=== PATIENT | male | born 1985 | race Caucasian/White ===

== ENCOUNTER 2018-03-09 14:30 | Emergency (ER) | payer BC ==
--- NOTE | 2018-03-09 15:29 | ER ---
Nurse's Notes [facility] Name: Jono Castle Age: 32 yrs Sex: Male : 1985 Arrival Date: 03/09/2018 Time: 14:33 Bed 30 Private MD: Diagnosis: Paresthesia of skin Presentation: 03/09 14:43 Presenting complaint: Patient states: Intermittent numbness to hands and feet for 6 aj months with decreasing vision an decreased hearing. Patient drove himself to ER. Ambulated with steady gait. In NAD. Transition of care: patient was not received from another setting of care. Onset of symptoms was August 2017. Risk Assessment: Do you want to hurt yourself or someone else? Patient reports no desire to harm self or others. Initial Sepsis Screen: Does the patient meet any 2 criteria? No. Patient's initial sepsis screen is negative. Does the patient have a suspected source of infection? No. Patient's initial sepsis screen is negative. Care prior to arrival: None. 14:43 Method Of Arrival: Ambulatory 14:43 Acuity: CHRISTIAN 3 aj Triage Assessment: 14:44 General: Appears in no apparent distress. comfortable, Behavior is cooperative, aj anxious. Pain: Denies pain. Neuro: Level of Consciousness is awake, alert, obeys commands, Oriented to person, place, time, situation, Appropriate for age Triage Licensed Practical Nurse are equal bilaterally Moves all extremities. Full function Gait is steady, Speech is normal, Facial symmetry appears normal, Pupils are PERRLA, Numbness in right hand and left hand. Respiratory: Airway is patent Respiratory effort is even, unlabored, Respiratory pattern is regular, symmetrical. Derm: Skin is intact, is healthy with good turgor, Skin is pink, warm \T\ dry. normal. Historical: - Allergies: 14:44 No Known Drug Allergies; aj - Home Meds: 14:44 None [Active]; aj - PMHx: 14:44 None; aj - PSHx: 14:44 None; aj - Immunization history:: Adult Immunizations up to date. - Social history:: Smoking status: Patient/guardian denies using tobacco. - Ebola Screening: : Patient negative for fever greater than or equal to 101.5 degrees Fahrenheit, and additional compatible Ebola Virus Disease symptoms Patient denies exposure to infectious person Patient denies travel to an Ebola-affected area in the days before illness onset No symptoms or risks identified at this time. Screenin:20 Abuse screen: Denies threats or abuse. Denies injuries from another. Nutritional mg2 screening: No deficits noted. Tuberculosis screening: No symptoms or risk factors identified. Fall Risk None identified. Assessment: 15:22 General: Appears in no apparent distress. comfortable, Behavior is calm, cooperative. mg2 Pain: Denies pain. Neuro: Level of Consciousness is awake, alert, obeys commands, Oriented to person, place, time, situation. Cardiovascular: No deficits noted. Respiratory: No deficits noted. GI: No deficits noted. : No deficits noted. EENT: No deficits noted. Derm: Skin is intact, Skin is pink, warm \T\ dry. normal. Musculoskeletal: Circulation, motion, and sensation intact. Reports tingling sensation in the left arm and hand. Vital Signs: 14:44 BP 158 / 82; Pulse 104; Resp 20; Temp 97.7; Pulse Ox 97% on R/A; Weight 81.65 kg; aj Height 6 ft. 0 in. (182.88 cm); 15:54 BP 128 / 84; Pulse 90; Resp 18; Pulse Ox 100% on R/A; Pain 0/10; mg2 14:44 Body Mass Index 24.41 (81.65 kg, 182.88 cm) ED Course: 14:33 Patient arrived in ED. rg4 14:44 Triage completed. aj 14:46 Patient placed in an exam room. aj 15:03 Dejuan Garcia MD is Attending Physician. gs 15:19 Feroz Lundy, RN is Primary Nurse. mg2 15:21 No provider procedures requiring assistance completed. Patient did not have IV access mg2 during this emergency room visit. 15:23 Patient has correct armband on for positive identification. Pulse ox on. NIBP on. Door mg2 closed. 15:29 Chandler Perez MD is Referral Physician. gs 15:29 Amos Ayoub MD is Referral Physician. gs Administered Medications: No medications were administered Outcome: 15:28 Discharge ordered by . gs 15:54 Discharged to home ambulatory. mg2 15:54 Condition: good 15:54 Discharge instructions given to patient, Instructed on discharge instructions, follow up and referral plans. Demonstrated understanding of instructions, follow-up care. 15:55 Patient left the ED. mg2 Signatures: Kaylie Zafar, RN RN Dee Dee Larson rg4 Dejuan Garcia MD MD Feroz Lundy RN RN mg2 Corrections: (The following items were deleted from the chart) 14:46 14:44 Arm band placed on right wrist. Patient placed in an exam room, tremayne casper
--- NOTE | 2018-03-09 15:29 | EDPHYS ---
Physician Documentation [facility] Name: Jono Castle Age: 32 yrs Sex: Male : 1985 Arrival Date: 03/09/2018 Time: 14:33 Bed 30 Private MD: ED Physician Dejuan Garcia HPI: 03/09 18:30 This 32 yrs old Male presents to ER via Ambulatory with complaints of Doesn't gs Feel Right. 18:30 The patient's problem is reported as paresthesias, intermittent varying extremity, gs visual difficulty, blurred vision. Onset: The symptoms/episode began/occurred 2 month(s) ago. Duration: The episodes are intermittent, lasting wax and wane no pattern. Associated signs and symptoms: Pertinent negatives: abdominal pain, agitation, ataxia, combativeness, confusion, diaphoresis, diarrhea, dizziness, headache, lightheadedness, nausea, palpitations, seizure, shortness of breath, tingling, vertigo, vomiting, weakness. Severity of symptoms: At their worst the symptoms were moderate in the emergency department the symptoms have resolved. The patient has experienced similar episodes in the past, multiple times. The patient has not recently seen a physician. Historical: - Allergies: 14:44 No Known Drug Allergies; aj - Home Meds: 14:44 None [Active]; aj - PMHx: 14:44 None; aj - PSHx: 14:44 None; aj - Immunization history:: Adult Immunizations up to date. - Social history:: Smoking status: Patient/guardian denies using tobacco. - Ebola Screening: : Patient negative for fever greater than or equal to 101.5 degrees Fahrenheit, and additional compatible Ebola Virus Disease symptoms Patient denies exposure to infectious person Patient denies travel to an Ebola-affected area in the 21 days before illness onset No symptoms or risks identified at this time. ROS: 18:30 All other systems are negative. gs Exam: 18:30 Head/Face: Normocephalic, atraumatic. Eyes: Pupils equal round and reactive to light, gs extra-ocular motions intact. Lids and lashes normal. Conjunctiva and sclera are non-icteric and not injected. Cornea within normal limits. Periorbital areas with no swelling, redness, or edema. ENT: Nares patent. No nasal discharge, no septal abnormalities noted. Tympanic membranes are normal and external auditory canals are clear. Oropharynx with no redness, swelling, or masses, exudates, or evidence of obstruction, uvula midline. Mucous membranes moist. Neck: Trachea midline, no thyromegaly or masses palpated, and no cervical lymphadenopathy. Supple, full range of motion without nuchal rigidity, or vertebral point tenderness. No Meningismus. Chest/axilla: Normal chest wall appearance and motion. Nontender with no deformity. No lesions are appreciated. Cardiovascular: Regular rate and rhythm with a normal S1 and S2. No gallops, murmurs, or rubs. Normal PMI, no JVD. No pulse deficits. Respiratory: Lungs have equal breath sounds bilaterally, clear to auscultation and percussion. No rales, rhonchi or wheezes noted. No increased work of breathing, no retractions or nasal flaring. Abdomen/GI: Soft, non-tender, with normal bowel sounds. No distension or tympany. No guarding or rebound. No evidence of tenderness throughout. Back: No spinal tenderness. No costovertebral tenderness. Full range of motion. Skin: Warm, dry with normal turgor. Normal color with no rashes, no lesions, and no evidence of cellulitis. MS/ Extremity: Pulses equal, no cyanosis. Neurovascular intact. Full, normal range of motion. Psych: Awake, alert, with orientation to person, place and time. Behavior, mood, and affect are within normal limits. 18:30 Constitutional: The patient appears in no acute distress, alert, awake. 18:30 Neuro: Orientation: to person, place, time \T\ situation. Mentation: is normal, Memory: is normal, Cranial nerves: CN II- XII are normal as tested, Cerebellar function: normal finger to nose testing, Motor: moves all fours, strength is 5/5 in all extremities, Sensation: no obvious gross deficits, pin prick testing is normal, Gait: is steady, appropriate for age, Deep tendon reflexes are 3+ (brisk) in the right bicep, right brachioradialis, right patellar, right Achilles, left bicep, left brachioradialis, left patellar and left Achilles. Vital Signs: 14:44 BP 158 / 82; Pulse 104; Resp 20; Temp 97.7; Pulse Ox 97% on R/A; Weight 81.65 kg; aj Height 6 ft. 0 in. (182.88 cm); 15:54 BP 128 / 84; Pulse 90; Resp 18; Pulse Ox 100% on R/A; Pain 0/10; mg2 14:44 Body Mass Index 24.41 (81.65 kg, 182.88 cm) aj MDM: 15:22 Patient medically screened. gs 18:30 Differential diagnosis: metabolic disorder, drug effects, multiple sclerosis, gs als,chorea. Data reviewed: vital signs, nurses notes. Counseling: I had a detailed discussion with the patient and/or guardian regarding: the historical points, exam findings, and any diagnostic results supporting the discharge/admit diagnosis, the need for outpatient follow up, a neurologist. ED course: offered to speak with patients mother, offered ct, agreed mri was best test and should see neurologist very soon for mri and specific blood work. wants to do as OP .. Administered Medications: No medications were administered Disposition: 03/09/18 15:28 Discharged to Home. Impression: Paresthesia of skin. - Condition is Stable. - Discharge Instructions: Paresthesia, [id number], Managing Your Hypertension. - Medication Reconciliation Form, Thank You Letter, Antibiotic Education, Prescription Opioid Use form. - Follow up: Private Physician; When: 2 - 3 days; Reason: Re-evaluation by your physician. Follow up: Chandler Perez MD; When: 2 - 3 days; Reason: Recheck today's complaints. Follow up: Amos Ayoub MD; When: 2 - 3 days; Reason: Re-evaluation by your physician. Signatures: Kaylie Zafar RN RN Dejuan Garcia MD MD Feroz Lundy RN RN mg2 Corrections: (The following items were deleted from the chart) 15:29 15:28 03/09/2018 15:28 Discharged to Home. Impression: Paresthesia of skin. Condition gs is Stable. Forms are Medication Reconciliation Form, Thank You Letter, Antibiotic Education, Prescription Opioid Use. Follow up: Private Physician; When: 2 - 3 days; Reason: Re-evaluation by your physician. gs 15:55 15:29 03/09/2018 15:28 Discharged to Home. Impression: Paresthesia of skin. Condition mg2 is Stable. Forms are Medication Reconciliation Form, Thank You Letter, Antibiotic Education, Prescription Opioid Use. Follow up: Private Physician; When: 2 - 3 days; Reason: Re-evaluation by your physician. Follow up: Chandler Perez; When: 2 - 3 days; Reason: Recheck today's complaints. Follow up: Amos Ayoub; When: 2 - 3 days; Reason: Re-evaluation by your physician. gs
== END 2018-03-09 15:55 | disposition home or self-care (01) ==
LOC: ER 14:30
DX: R20.2 Paresthesia of skin (principal)
CPT/HCPCS: 99283

== ENCOUNTER 2020-11-13 21:20 | Emergency (ER) | payer BC ==
--- OUTSIDE RECORDS SUMMARY | 2020-11-13 21:23 | XMS REPORT | Continuity of Care Document ---
:1985 Author Organization [facility] t Address [address] [place] [address] Care Team Providers Name Role Phone Asked, Pcp Primary Care Physician Unavailable Ryan Peña MD Attending Clinician Santos Perez Attending Clinician Payers Payer Name Policy Type Policy Effective Date Expiration Date Sour ce Number BCBSBCBS CHOICE [id number] 2014 [place] PPO/FEDERAL 00:00:00 [employer] EMPL [id number] 2014-Presen tPPO Problems Condition Condition Condition Status Onset Resolution Last Treating Co mments Source Name Details Category Date Date Treatment Clinician Date Concussion Problem Resolve 2019-01-27 Memoria injury of d 14:27:22 l body Caleb structure Concussion (disorder) injury of body structure (disorder) Resolved Problem 01/27/2019 Cerebral concussion . [facility] Allergic Problem Active 2019-01-27 Mem oria rhinitis 14:27:22 l (disorder) Allergic He rmann rhinitis (disorder) Active Problem 01/27/2019 [facility] Asthma Problem Active 2019-01-27 Memor ia (disorder) 14:27:22 l Asthma Redmon (disorder) Active Problem 01/27/2019 [facility] Headache Problem Active 2019-01-27 Mem oria (finding) 14:27:22 l Headache Farrukh n (finding) Active Problem 01/27/2019 [facility] Neck pain Problem Active 2019-01-27 Me moria (finding) 14:27:22 l Neck Redmon pain (finding) Active Problem 01/27/2019 [facility] Paresthesi Problem Active 2019-01-27 M emoria a 14:27:22 l (finding) Redmon Paresthesi a (finding) Active Problem 01/27/2019 [facility] Visual Problem Active 2019-01-27 Memor ia disturbanc 14:27:22 l e Visual Redmon (disorder) disturbanc e (disorder) Active Problem 01/27/2019 [facility] Allergies, Adverse Reactions, Alerts Allergy Allergy Status Severity Reaction(s) Onset Inactive Treating Comm ents Source Name Type Date Date Clinician No Known No Known Active Memori a Medicati Medicati l on on Caleb Allergie Allergie s s Social History Social Habit Start Date Stop Date Quantity Comments [facility] B[facility] Std Drinks Tobacco use and 2020-02-19 2020-02-19 Never used [facility] ethodist exposure 00:00:00 00:00:00 Alcohol intake 2020-02-19 2020-02-19 Lifetime [facility] thodist 00:00:00 00:00:00 non-drinker (finding) History SDOH 2020-02-19 2020-02-19 1 [facility] Alcohol Frequency 00:00:00 00:00:00 Social History 2018-04-30 2018-04-30 [facility] ermann 15:41:31 15:41:31 Sex Ass[birth year] At [birth year] [facility] ethodist 00:00:00 00:00:00 Smoking Status Start Date Stop Date Source Never smoker [facility] t Medications Ordered Filled Start Stop Current Ordering Indication Dosage Frequency Signature Comments Components Source Medication Medication Date Date Medication? Clinician (SIG) Name Name propranolol 2017-06 Yes 10 mg = 1 M emoria 10 mg oral 2-18 tab, PO, l tablet 18:12: BID, # 60 Farrukh n 00 tab, 3 Refill(s), Pharmacy: [id number] Zyrte 2017-06 Yes 10 mg, PO, Memor ia 1-20 Daily, 0 l 15:33: Refill(s) Redmon 00 Vital Signs Vital Name Observation Time Observation Value Comments Source Systolic blood 2020-02-19 04:00:00 124 mm[Hg] [place] [facility] pressure Diastolic blood 2020-02-19 04:00:00 86 mm[Hg] Kristin on Jainism pressure Heart rate 2020-02-19 04:00:00 63 /min Jhonny Jainism Respiratory rate 2020-02-19 04:00:00 18 /min Maury vanesa Jainism Oxygen saturation in 2020-02-19 04:00:00 96 /min Jhonny Jainism Arterial blood by Pulse oximetry Body height 2020-02-19 02:13:00 182.9 cm Barry Jainism Body weight 2020-02-19 02:13:00 83.915 kg Barry [facility]ainism BMI 2020-02-19 02:13:00 25.09 kg/m2 Barry [facility]ainism Body temperature 2020-02-19 02:06:00 36.5 Lizabeth Maury alexis Jainism BMI Calculated 2018-05-28 17:44:00 Memori al Redmon Weight 2018-05-28 17:44:00 [facility] Height 2018-05-28 17:44:00 177.8 cm [facility] Respitory Rate 2018-05-28 17:44:00 Memori al Redmon Heart Rate 2018-05-28 17:44:00 [facility] Systolic (mm Hg) 2018-05-28 17:44:00 Nikhil rial Redmon Diastolic (mm Hg) 2018-05-28 17:44:00 Mem orial Caleb BMI Calculated 2018-04-30 15:28:00 Memori al Redmon Weight 2018-04-30 15:28:00 [facility] Height 2018-04-30 15:28:00 182.88 cm [facility] Caleb Heart Rate 2018-04-30 15:28:00 [facility] [place]mon Systolic (mm Hg) 2018-04-30 15:28:00 Nikhil rial Caleb Diastolic (mm Hg) 2018-04-30 15:28:00 Mem orial Redmon Procedures Procedure Date / Time Performing Clinician Source Performed CT ANGIOGRAM PE CHEST 2020-02-19 03:54:47 Daniela Peña US DUPLEX VENOUS LOWER 2020-02-19 03:30:00 Daniela Peña EXTREMITY BILATERAL Ryan ECG ED PRELIMINARY 2020-02-19 02:30:36 Daniela Peña INTERPRETATION Ryan COMPREHENSIVE METABOLIC 2020-02-19 02:16:00 Daniela Peña PANEL Ryan HC COMPLETE BLD COUNT 2020-02-19 02:16:00 Daniela Peña W/AUTO DIFF Ryan TROPONIN 2020-02-19 02:16:00 Daniela Peña Met jose manuel Davis ESTIMATED GFR 2020-02-19 02:16:00 Daniela Peña Met jose manuel Davis ECG 12-LEAD 2020-02-19 02:14:09 Daniela Peña Met jose manuel Davis Plan of Care Planned Activity Planned Date Details Comments Source Future Scheduled 2021-01-09 INFLUENZA VACCINE Mauryto n [facility] Test 00:00:00 [code = INFLUENZA VACCINE] Future Scheduled 2004 Hepatitis C Jhonny Met hodist Test 00:00:00 screening (procedure) [code = 165168396] Future Scheduled 1998 COVID-19 VACCINE (1) Herrera ruff [facility] Test 00:00:00 [code = COVID-19 VACCINE (1)] Encounters Start End Encounter Admission Attending Care Care Encounter Source Date/Time Date/Time Type Type Clinicians Facility Department ID 2020-02-19 2020-02-19 Emergency DANIEL [facility] [id number] Barry 00:00:00 00:00:00 DANIELA thurman 2018-07-10 2018-07-10 [id number] 09:30:00 09:30:00 Chandler 02 Santos 2018-05-28 2018-05-28 Outpatient GOLDEN PerezSCHER MHMISCHER [id number] 11:45:00 23:59:59 Chandler Santos 2018-04-30 2018-04-30 Outpatient GOLDEN PerezSCHMARI MHMISCHER [id number] 09:30:00 23:59:59 Chandler 00 Santos 2018-03-21 2018-03-22 Outpatient MHMISCHER MHMISCHER [id number] 17:09:00 23:59:59 00 Results Test Description Test Time Test Comments Results Result Comments Source ECG 12 lead 2020-02-19 09:17:10 Test Item Value Reference Range Interpretation Comme nts Ventricular rate (test code = 253) 70 Atrial rate (test code = 255) 70 IN interval (test code = 266) 150 QRSD interval (test code = 260) 82 QT interval (test code = 264) 376 QTC interval (test code = 265) 406 P axis 1 (test code = 267) 62 QRS axis 1 (test code = 268) 16 T wave axis (test code = 270) 32 EKG impression (test code = 273) Normal sinus rhythm with sinus arrhythmia-Normal ECG-No previous ECGs available- [facility] Pe [id number] 04:04:58Hm Interface, Radiology Results 02/19/2020 4:08 AM CDTFormatting of this note might be di fferent from the original.EXAMINATION: CT ANGIOGRAM PE CHESTCLINICAL HISTORY: pleuritic left sided chest pain covid leg painTECHNIQUE: CT angiographic images of the chest were obtained during intravenous administration of iodinated contrast. Computerized reformatted images and 3-D MIP images were also obtained and archived (CT pulmonary embolus protocol). CT scans are performed using radiationdose reduction techniques. Technical factors are evaluated and adjusted to ensure appropriate moderation of exposure. Automated dose management technology is applied to adjust radiation exposure while achieving a diagnostic quality image.CT imaging was performed with iterative reconstruction techniques and/or automated exposure control to reduce radiation dose.COMPARISON: None.Findings:There are no filling defects within the pulmonary arterial system to suggest a pulmonary embolus.No dissection or aneurysm is seen.No consolidation or pleural effusion is seen.No pulmonary mass or nodule is seen.No mediastinal hematoma or lymphadenopathy is seen.Visualized upper abdomen shows no acute abnormality.The visualized bony structures show no acute abnormality.IMPRESSION: 1. No evidence of pulmonary embolus. No acute abnormality identified in the chest.[id number] duplex venous lower [id number] 03:52:08Hm Interface, Radiology Results - 02/19/2020 3:55 AM CDT EXAMINATION: US DUPLEX VENOUS LOWER EXTREMITY BILATERALCLINICAL HISTORY:pain covid COMPARISON: None.TECHNIQUE: Grayscale, color Doppler, and spectral waveform analysis of the bilateral lower extremity deep venous systems was performed. The bilateral common femoral, superficial femoral, proximal deep femoral, greater saphenous, and popliteal veins were evaluated. The calf vessels were also evaluated.FINDINGS:The bilateral common femoral, superficial femoral, and popliteal veins are compressible. They demonstrate normal venous waveforms and response to augmentation. There is flow in the visualized calf veins.There is no evidence of a popliteal or Braun's cyst.IMPRESSION:Normal bilateral lower extremity venous Doppler examination. There is no evidence of deep venous t hrombosis.[id number] MethodistEC ED Preliminary Interpretation - Not an [id number] 02:30:36Daniela Peña MD 02/19/2020 4:20 AMECG ED Preliminary Interpretation - Not an OrderPerformed by: Daniela Peña MDAuthorized by: Daniela Peña MD ECG reviewed byED Physician in the absence of a loan originator: yes Previous ECG: Previous ECG: UnavailableInterpretation: Interpretation: non-specific Rate: ECG rate: 70 ECG rate assessment: normal Rhythm: Rhythm: sinus rhythm Ectopy: Ectopy: none QRS: QRS axis: Normal QRS intervals: NormalConduction: Conduction: normal ST segments: ST segments: NormalT waves: T waves: normalJhonny Red
[2020-11-13] MEDS ORDERED: LEVALBUTEROL 1.25 MG/3 ML NEB ONE (22:30)
[2020-11-13] MEDS ORDERED: dexAMETHasone 10 MG/ML VIAL ONE (22:30)
--- NOTE | 2020-11-13 23:54 | ER ---
Nurse's Notes [facility] Name: Jono Castle Age: 34 yrs Sex: Male : 1985 Arrival Date: 11/13/2020 Time: 21:31 Bed 26 Private MD: Diagnosis: Acute upper respiratory infection, unspecified;Acute pharyngitis Presentation: 11/13 21:36 Chief complaint: Patient states: I have throat pain,congestion, cough,started few weeks rr5 ago and feels my lungs is getting tight. I had a fever last week. Coronavirus screen: Client denies travel out of the [place] in the last 14 days. fever, runny nose, sore throat. Ebola Screen: Patient negative for fever greater than or equal to 101.5 degrees Fahrenheit, and additional compatible Ebola Virus Disease symptoms Patient denies exposure to infectious person. Patient denies travel to an Ebola-affected area in the 21 days before illness onset. Resp Distress? Mild respiratory distress is noted. Initial Sepsis Screen: Does the patient meet any 2 criteria? No. Patient's initial sepsis screen is negative. Does the patient have a suspected source of infection? Yes: Productive cough/pneumonia. Risk Assessment: Do you want to hurt yourself or someone else? Patient reports no desire to harm self or others. Onset of symptoms was November 13, 2020. 21:36 Method Of Arrival: Ambulatory rr5 21:36 Acuity: CHRISTIAN 3 rr5 Historical: - Allergies: 21:40 No Known Allergies; rr5 - Home Meds: 21:40 Zyrtec Oral [Active]; rr5 - PMHx: 21:40 Asthma; rr5 - PSHx: 21:40 None; rr5 - Immunization history:: Adult Immunizations up to date. - Social history:: Smoking status: unknown Patient uses alcohol, but reports only rare drinking. Patient/guardian denies using street drugs. Screenin:42 Abuse screen: Denies threats or abuse. Denies injuries from another. Nutritional zb screening: No deficits noted. Tuberculosis screening: No symptoms or risk factors identified. Fall Risk None identified. Assessment: 21:52 General: Appears in no apparent distress. uncomfortable, Behavior is calm, cooperative, zb appropriate for age, Reports feeling ill for > 3 days. Pain: Denies pain. Neuro: Level of Consciousness is awake, alert, obeys commands, Oriented to person, place, time, situation. Cardiovascular: Heart tones S1 S2 present Patient's skin is warm and dry. Respiratory: Reports shortness of breath at rest Airway is patent Respiratory effort is even, unlabored, Respiratory pattern is regular, symmetrical, Breath sounds are clear bilaterally. the patient has mild shortness of breath. Respiratory: Reports cough that is non-productive, hacking, persistent pain with cough. GI: No deficits noted. : No deficits noted. Derm: Skin is intact, is healthy with good turgor. Musculoskeletal: Circulation, motion, and sensation intact. Range of motion: intact in all extremities. 22:51 Reassessment: Patient appears in no apparent distress at this time. Patient and/or zb family updated on plan of care and expected duration. Pain level reassessed. Patient is alert, oriented x 3, equal unlabored respirations, skin warm/dry/pink. neb tx completed. 23:57 Reassessment: Patient appears in no apparent distress at this time. Patient and/or zb family updated on plan of care and expected duration. Pain level reassessed. Patient is alert, oriented x 3, equal unlabored respirations, skin warm/dry/pink. Vital Signs: 21:36 BP 153 / 83; Pulse 78; Resp 16; Temp 97.8; Pulse Ox 99% ; Weight 86.18 kg; Height 6 ft. rr5 0 in. (182.88 cm); Pain 6/10; 21:56 BP 159 / 102; Pulse 84; Resp 16; Pulse Ox 98% on NC; zb 22:50 BP 149 / 79; Pulse 82; Resp 16; Pulse Ox 100% on R/A; zb 21:36 Body Mass Index 25.77 (86.18 kg, 182.88 cm) rr5 ED Course: 21:31 Patient arrived in ED. cf2 21:35 Lorenzo Andujar PA is PHCP. jmm 21:35 Marshall Sheffield MD is Attending Physician. jmm 21:39 Triage completed. rr5 21:40 Arm band placed on right wrist. rr5 21:42 Evy De Souza, BEVERLY is Primary Nurse. zb 21:42 Patient has correct armband on for positive identification. Bed in low position. Call zb light in reach. Side rails up X 1. Pulse ox on. NIBP on. 21:56 COVID swab sent to lab. Flu and/or RSV swab sent to lab. zb 22:51 Chest Single View XRAY In Process Unspecified. EDMS 23:57 No provider procedures requiring assistance completed. Patient did not have IV access zb during this emergency room visit. Administered Medications: 22:20 Drug: Xopenex (levalbuterol) (3) 1.25 mg Route: Inhalation; zb 23:57 Follow up: Response: No adverse reaction; Marked relief of symptoms zb 22:20 Drug: Decadron (dexamethasone) 10 mg Route: IM; Site: left deltoid; zb 23:57 Follow up: Response: No adverse reaction; Marked relief of symptoms zb Outcome: 23:53 Discharge ordered by . jmm 23:57 Discharged to home ambulatory. zb 23:57 Condition: stable 23:57 Discharge instructions given to patient, Instructed on discharge instructions, follow up and referral plans. medication usage, Demonstrated understanding of instructions, follow-up care, medications, Prescriptions given X 3. 11/14 00:02 Patient left the ED. zb Signatures: Dispatcher [employer] EDMS Lorenzo Andujar PA PA jmm Roque, Raymond, RN RN rr5 Jimbo Urias cf2 Evy De Souza, BEVERLY RN zb Corrections: (The following items were deleted from the chart) 11/13 23:58 23:57 Discharge instructions given to patient, Instructed on discharge instructions, zb follow up and referral plans. Demonstrated understanding of instructions, follow-up care, zb
--- NOTE | 2020-11-13 23:54 | EDPHYS ---
Physician Documentation [facility] Name: Jono Castle Age: 34 yrs Sex: Male : 1985 Arrival Date: 11/13/2020 Time: 21:31 Bed 26 Private MD: ED Physician Marshall Sheffield HPI: 11/13 23:51 This 34 yrs old Male presents to ER via Ambulatory with complaints of Cough, jmm Runny Nose, Congestion. 23:51 The patient or guardian reports cough. Onset: The symptoms/episode began/occurred jmm gradually, 3 day(s) ago. Modifying factors: The symptoms are alleviated by nothing, the symptoms are aggravated by nothing. Associated signs and symptoms: Pertinent positives: fever, rhinorrhea, sore throat. The patient has experienced similar episodes in the past. Historical: - Allergies: 21:40 No Known Allergies; rr5 - Home Meds: 21:40 Zyrtec Oral [Active]; rr5 - PMHx: 21:40 Asthma; rr5 - PSHx: 21:40 None; rr5 - Immunization history:: Adult Immunizations up to date. - Social history:: Smoking status: unknown Patient uses alcohol, but reports only rare drinking. Patient/guardian denies using street drugs. ROS: 23:51 Constitutional: Positive for body aches, chills. jmm 23:51 ENT: Positive for sore throat. 23:51 Respiratory: Positive for cough. 23:51 Abdomen/GI: Negative for abdominal pain. 23:51 All other systems are negative. Exam: 23:51 Constitutional: This is a well developed, well nourished patient who is awake, alert, jmm and in no acute distress. Head/Face: atraumatic. Eyes: EOMI, no conjunctival erythema appreciated 23:51 Neck: Trachea midline, Supple Chest/axilla: Normal chest wall appearance and motion. Cardiovascular: Regular rate and rhythm. No edema appreciated Respiratory: Normal respirations, no respiratory distress appreciated Abdomen/GI: Non distended, soft Back: Normal ROM Skin: General appearance color normal MS/ Extremity: Moves all extremities, no obvious deformities appreciated, no edema noted to the lower extremities Neuro: Awake and alert, normal gait Psych: Behavior is normal, Mood is normal, Patient is cooperative and pleasant 23:51 ENT: Posterior pharynx: erythema, that is mild. Vital Signs: 21:36 BP 153 / 83; Pulse 78; Resp 16; Temp 97.8; Pulse Ox 99% ; Weight 86.18 kg; Height 6 ft. rr5 0 in. (182.88 cm); Pain 6/10; 21:56 BP 159 / 102; Pulse 84; Resp 16; Pulse Ox 98% on NC; zb 22:50 BP 149 / 79; Pulse 82; Resp 16; Pulse Ox 100% on R/A; zb 21:36 Body Mass Index 25.77 (86.18 kg, 182.88 cm) rr5 MDM: 21:50 Patient medically screened. [facility] 23:52 Data reviewed: vital signs, nurses notes. Counseling: I had a detailed discussion with [facility] the patient and/or guardian regarding: the historical points, exam findings, and any diagnostic results supporting the discharge/admit diagnosis, lab results, radiology results, the need for outpatient follow up, to return to the emergency department if symptoms worsen or persist or if there are any questions or concerns that arise at home. ED course: Patient is alert and non toxic in appearance in the ED. No signs of resp distress. Advised to follow up with pcp and otherwise given strict return precautions. patient understood and agrees with the plan of care. . 11/13 21:55 Order name: Flu; Complete Time: 23:39 [facility] 11/13 21:55 Order name: Strep; Complete Time: 22:58 [facility] 11/13 21:56 Order name: COVID-19 : Document "Date of Symptom Onset" if Symptomatic. [facility] 11/13 23:00 Order name: Throat Culture [facility] 11/13 23:27 Order name: SARS-COV-2 RT PCR; Complete Time: 23:39 [facility] 11/13 21:55 Order name: Chest Single View XRAY [facility] Administered Medications: 22:20 Drug: Xopenex (levalbuterol) (3) 1.25 mg Route: Inhalation; zb 23:57 Follow up: Response: No adverse reaction; Marked relief of symptoms zb 22:20 Drug: Decadron (dexamethasone) 10 mg Route: IM; Site: left deltoid; zb 23:57 Follow up: Response: No adverse reaction; Marked relief of symptoms zb Disposition: 11/13/20 23:53 Discharged to Home. Impression: Acute upper respiratory infection, unspecified, Acute pharyngitis. - Condition is Stable. - Discharge Instructions: Pharyngitis, Upper Respiratory Infection, Adult. - Prescriptions for Prednisone 20 mg Oral Tablet - take 3 tablet by ORAL route once daily for 5 days; 15 tablet. Zithromax Z- Lewis 250 mg Oral Tablet - take 1 tablet by ORAL route as directed for 5 days Day 1 - take two (2) tablets one time. Day 2, 3, 4 , 5 take one (1) tablet once daily.; 6 tablet. Albuterol Sulfate 90 mcg/actuation - inhale 1-2 puff by INHALATION route every 4-6 hours; 1 Inhaler. - Medication Reconciliation Form, Thank You Letter, Antibiotic Education, Prescription Opioid Use form. - Follow up: Private Physician; When: 2 - 3 days; Reason: Recheck today's complaints, Continuance of care, Re-evaluation by your physician. Signatures: Dispatcher [employer] [facility] Lorenzo Andujar PA PA jmm Roque, Raymond, RN RN rr5 Evy De Souza RN RN zb Corrections: (The following items were deleted from the chart) 22:32 21:57 CORONAVIRUS ordered. [facility] 11/14 00:02 11/13 23:53 11/13/2020 23:53 Discharged to Home. Impression: Acute upper respiratory zb infection, unspecified; Acute pharyngitis. Condition is Stable. Forms are Medication Reconciliation Form, Thank You Letter, Antibiotic Education, Prescription Opioid Use. Follow up: Private Physician; When: 2 - 3 days; Reason: Recheck today's complaints, Continuance of care, Re-evaluation by your physician. loida
[2020-11-14 00:29] VITALS: TEMP 97.8
[2020-11-14 00:31] VITALS: BP 149/79; O2SAT 100
--- NOTE | 2020-11-14 09:51 | RAD REPORT ---
EXAM DESCRIPTION: Yu Single View11/13/2020 10:51 pm CLINICAL HISTORY: Cough COMPARISON: 2014 FINDINGS: The lungs appear clear of acute infiltrate. The heart is normal size IMPRESSION: No acute abnormalities displayed
== END 2020-11-14 00:02 | disposition home or self-care (01) ==
LOC: ER 21:20
DX: J06.9 Acute upper respiratory infection, unspecified (principal); J02.9 Acute pharyngitis, unspecified; J45.909 Unspecified asthma, uncomplicated; Z20.822 Contact with and (suspected) exposure to COVID-19
CPT/HCPCS: 87070; 87081; 87804 ×2; 71045; 96372; 99284; U0003; J1100